=== PATIENT | male | born 1950 | race Native Hawaiian/Other Pacific Islander ===

== ENCOUNTER 2017-10-11 08:39 | Outpatient (CLI) | payer OTHER, MEDICARE ==
[2017-10-11 09:06] LABS: POTASSIUM 3.7 mmol/L (3.6-5.2)
[2017-10-11 09:34] LABS: PLATELET COUNT 221 K/uL (142-355)
== END 2017-10-11 19:02 | disposition home or self-care (01) ==
LOC: LABW 08:39
PROVIDERS: Specialist
DX: R07.2 Precordial pain (principal); Z01.810 Encounter for preprocedural cardiovascular examination; R93.1 Abnormal findings on diagnostic imaging of heart and coronary circulation
CPT/HCPCS: 36415; 80053; 85027

== ENCOUNTER 2017-11-28 09:29 | Outpatient (CLI) | payer OTHER, MEDICARE | END 2017-11-28 23:29 | disposition home or self-care (01) | LOC: RESP 09:29 | DX: R06.02 Shortness of breath (principal) ==

== ENCOUNTER 2018-01-14 04:54 | Outpatient (CLI) | payer OTHER, MEDICARE | END 2018-01-14 23:08 | disposition home or self-care (01) | LOC: LABW 04:54 | PROVIDERS: Specialist | DX: E78.2 Mixed hyperlipidemia (principal); Z79.899 Other long term (current) drug therapy; Z51.81 Encounter for therapeutic drug level monitoring | CPT/HCPCS: 36415; 80061; 80076 ==

== ENCOUNTER 2018-05-01 05:13 | Outpatient (CLI) | payer OTHER, MEDICARE | END 2018-05-01 20:05 | disposition home or self-care (01) | LOC: LABW 05:13 | PROVIDERS: Specialist | DX: E78.2 Mixed hyperlipidemia (principal); Z79.899 Other long term (current) drug therapy | CPT/HCPCS: 36415; 80061; 80076 ==

== ENCOUNTER 2018-06-02 05:20 | Outpatient (CLI) | payer OTHER, MEDICARE ==
[2018-06-02 06:21] LABS: PLATELET COUNT 189 K/uL (142-355)
[2018-06-02 07:02] LABS: POTASSIUM 4.8 mmol/L (3.6-5.2)
[2018-06-03] MEDS ORDERED: CLOP75TA2 PO (09:18)
[2018-06-03] MEDS ORDERED: ASPIR-8181 MG PO (09:18)
[2018-06-03] MEDS ORDERED: PRAVACHOL80 MG PO (09:19)
[2018-06-03] MEDS ORDERED: SERT100T PO (09:19)
[2018-06-03] MEDS ORDERED: LISI10TA11 PO (09:19)
== END 2018-06-02 19:39 | disposition home or self-care (01) ==
LOC: LABW 05:20
PROVIDERS: Internal Medicine
DX: N18.3 Chronic kidney disease, stage 3 (moderate) (principal)
CPT/HCPCS: 80053; 81000; 82043; 82306; 82330; 82570; 83735; 83970; 84100; 84155; 85027

== ENCOUNTER 2018-06-03 08:59 | Observation (INO) | payer OTHER, MEDICARE ==
[~2018-06-03] VITALS: Ht 170.2 cm; Wt 103.6 kg
[2018-06-03 09:10] VITALS: BP 156/64; TEMP 99.3
[2018-06-03] MEDS ORDERED: ASPIR-8181 MG PO (09:18)
[2018-06-03] MEDS ORDERED: CLOP75TA2 PO (09:18)
[2018-06-03] MEDS ORDERED: SERT100T PO (09:19)
[2018-06-03] MEDS ORDERED: LISI10TA11 PO (09:19)
[2018-06-03] MEDS ORDERED: PRAVACHOL80 MG PO (09:19)
[2018-06-03 09:56] LABS: PLATELET COUNT 203 K/uL (142-355)
[2018-06-03 10:01] LABS: POTASSIUM 4.2 mmol/L (3.6-5.2)
[2018-06-03 18:08] VITALS: BP 124/78; TEMP 98.5; Ht 170.2 cm; Wt 103.6 kg
[2018-06-03 20:39] VITALS: BP 113/51; TEMP 98.1
--- NOTE | 2018-06-04 00:03 | NUR ---
06/03/18 4189 ASSISTED PT TO USE IS WAS ABLE TO GO TO 3000.PT ENCORAGED TO GET OUT OF BED TO USE RESTROOM UNABLE TO USE URINAL AT THIS TIME,PT ENCOURAGED TO DRINK MORE WATER TOLD HIM WE WILL TRY AGAIN IN ALITTLE WHILE.PT DENIES ANY PAIN AT THIS TIME ONLY SORENESS.CC
[2018-06-04 00:17] VITALS: BP 104/60; TEMP 97.8
[2018-06-04 03:58] VITALS: BP 105/50; TEMP 98.1
[2018-06-04 05:52] LABS: PLATELET COUNT 174 K/uL (142-355)
[2018-06-04 06:00] LABS: POTASSIUM 4.8 mmol/L (3.6-5.2)
--- NOTE | 2018-06-04 11:15 | NUR ---
PT UP AMBULATING IN THE HALLWAY. NO DISTRESS NOTED.
[2018-06-04 23:34] VITALS: BP 127/77; TEMP 99
[2018-06-05 00:54] VITALS: BP 108/81; TEMP 98.6
[2018-06-05 05:31] VITALS: BP 126/66; TEMP 98.5
[2018-06-05 06:08] LABS: PLATELET COUNT 163 K/uL (142-355)
== END 2018-06-05 12:00 | disposition home or self-care (01) ==
LOC: ED 08:59 → MED/SURG 15:25
PROVIDERS: Emergency Medicine; Family Medicine; ADMIT Student in an Organized Health Care Education/Training Program
PROC: 0DTJ4ZZ Resection of Appendix, Percutaneous Endoscopic Approach (ICD-10-PCS; principal; 2018-06-03)
DX: K35.32 Acute appendicitis with perforation, localized peritonitis, and gangrene, without abscess (principal)
CPT/HCPCS: 36415; 80048; 80053; 81000; 85027; 94760; 96374; 99220; 99284; G0378; J0132; J0330; J0690; J1100; J1170; J1644; J2250; J2405; J2543; J2710; J2765; J3010; J3490; Q9963

== ENCOUNTER 2018-08-19 08:34 | Outpatient (CLI) | payer OTHER, MEDICARE ==
[~2018-08-19 08:34] MED LIST: ASPIR-8181 MG PO; CLOP75TA2 PO; LISI10TA11 PO; PRAVACHOL80 MG PO; SERT100T PO
[2018-08-19 09:03] LABS: PLATELET COUNT 211 K/uL (142-355)
[2018-08-19 09:14] LABS: POTASSIUM 4.6 mmol/L (3.6-5.2)
== END 2018-08-19 19:40 | disposition home or self-care (01) ==
LOC: LABW 08:34
PROVIDERS: Internal Medicine
DX: N18.3 Chronic kidney disease, stage 3 (moderate) (principal)
CPT/HCPCS: 36415; 80053; 85027

== ENCOUNTER 2018-09-29 05:05 | Outpatient (CLI) | payer OTHER ==
[2018-09-29 05:32] LABS: PLATELET COUNT 234 K/uL (142-355)
[2018-09-29 06:26] LABS: POTASSIUM 4.7 mmol/L (3.6-5.2)
== END 2018-09-29 22:18 | disposition home or self-care (01) ==
LOC: LABW 05:05
PROVIDERS: Specialist
DX: R07.2 Precordial pain (principal); Z01.810 Encounter for preprocedural cardiovascular examination; I20.0 Unstable angina
CPT/HCPCS: 36415; 80053; 85027

== ENCOUNTER 2018-11-10 04:42 | Outpatient (CLI) | payer OTHER | END 2018-11-10 19:19 | disposition home or self-care (01) | LOC: LABW 04:42 | PROVIDERS: Specialist | DX: E78.2 Mixed hyperlipidemia (principal); Z79.899 Other long term (current) drug therapy | CPT/HCPCS: 36415; 80061; 80076 ==

== ENCOUNTER 2018-11-12 07:17 | Outpatient (CLI) | payer OTHER | END 2018-11-12 23:16 | disposition home or self-care (01) | LOC: CT 07:17 | DX: R91.1 Solitary pulmonary nodule (principal); Z78.9 Other specified health status ==

== ENCOUNTER 2018-12-16 04:36 | Outpatient (CLI) | payer OTHER ==
[2018-12-16 05:59] LABS: PLATELET COUNT 219 K/uL (142-355)
[2018-12-16 06:41] LABS: POTASSIUM 4.3 mmol/L (3.6-5.2)
== END 2018-12-16 19:12 | disposition home or self-care (01) ==
LOC: LABW 04:36
PROVIDERS: Internal Medicine
DX: N18.3 Chronic kidney disease, stage 3 (moderate) (principal)
CPT/HCPCS: 36415; 80053; 81000; 82043; 82306; 82570; 82607; 83735; 83970; 84100; 84155; 85027

== ENCOUNTER 2019-01-16 16:05 | Emergency (ER) | payer OTHER ==
[~2019-01-16] VITALS: Ht 170.2 cm; Wt 103.4 kg
[2019-01-16 16:24] VITALS: TEMP 99
[2019-01-16 17:35] VITALS: BP 130/78
== END 2019-01-16 17:38 | disposition home or self-care (01) ==
LOC: ED 16:05
DX: R51 Headache (principal)
CPT/HCPCS: 99283

== ENCOUNTER 2019-02-12 04:16 | Outpatient (CLI) | payer OTHER | END 2019-02-12 20:13 | disposition home or self-care (01) | LOC: LABW 04:16 | PROVIDERS: Specialist | DX: I25.10 Atherosclerotic heart disease of native coronary artery without angina pectoris (principal); E78.2 Mixed hyperlipidemia; Z79.899 Other long term (current) drug therapy | CPT/HCPCS: 36415; 80061; 80076 ==

== ENCOUNTER 2019-09-07 04:12 | Outpatient (CLI) | payer OTHER | END 2019-09-07 19:48 | disposition home or self-care (01) | LOC: LABW 04:12 | PROVIDERS: Specialist | DX: E78.2 Mixed hyperlipidemia (principal); Z79.899 Other long term (current) drug therapy | CPT/HCPCS: 36415; 80061; 80076 ==

== ENCOUNTER 2019-09-26 05:44 | Outpatient (CLI) | payer OTHER ==
[2019-09-26 06:42] LABS: PLATELET COUNT 250 K/uL (142-355)
[2019-09-26 06:44] LABS: POTASSIUM 4.4 mmol/L (3.6-5.2)
== END 2019-09-26 19:08 | disposition home or self-care (01) ==
LOC: LABW 05:44
PROVIDERS: Internal Medicine
DX: N18.3 Chronic kidney disease, stage 3 (moderate) (principal)
CPT/HCPCS: 36415; 80053; 81000; 82306; 82570; 83735; 83970; 84100; 84155; 85027

== ENCOUNTER 2020-02-23 07:43 | Outpatient (CLI) | payer OTHER ==
[~2020-02-23] VITALS: Ht 172.7 cm; Wt 106.1 kg
== END 2020-02-23 20:42 | disposition home or self-care (01) ==
LOC: NM 07:43
DX: I25.10 Atherosclerotic heart disease of native coronary artery without angina pectoris (principal); R07.89 Other chest pain
CPT/HCPCS: A9500; J2785

== ENCOUNTER 2020-02-24 08:50 | Outpatient (CLI) | payer OTHER | END 2020-02-24 19:42 | disposition home or self-care (01) | LOC: RESP 08:50 | DX: I25.10 Atherosclerotic heart disease of native coronary artery without angina pectoris (principal); R06.09 Other forms of dyspnea; R07.89 Other chest pain ==

== ENCOUNTER 2020-03-21 06:56 | Outpatient (CLI) | payer OTHER | END 2020-03-21 21:22 | disposition home or self-care (01) | LOC: LABW 06:56 | PROVIDERS: Specialist | DX: E78.2 Mixed hyperlipidemia (principal); Z79.899 Other long term (current) drug therapy | CPT/HCPCS: 36415; 80061; 80076 ==

== ENCOUNTER 2020-05-17 06:43 | Outpatient (CLI) | payer OTHER ==
[2020-05-17 07:29] LABS: POTASSIUM 4.6 mmol/L (3.6-5.2)
[2020-05-17 09:53] LABS: PLATELET COUNT 194 K/uL (142-355)
== END 2020-05-17 23:27 | disposition home or self-care (01) ==
LOC: LABW 06:43
PROVIDERS: Nurse Practitioner
DX: N18.30 Chronic kidney disease, stage 3 unspecified (principal)
CPT/HCPCS: 36415; 80053; 81000; 82306; 82330; 82570; 83735; 83970; 84100; 84155; 85027

== ENCOUNTER 2020-06-20 10:50 | Outpatient (CLI) | payer OTHER | END 2020-06-20 19:42 | disposition home or self-care (01) | LOC: RAD 10:50 | PROVIDERS: ATTEND Nurse Practitioner | DX: Z01.818 Encounter for other preprocedural examination (principal) ==

== ENCOUNTER 2020-09-12 12:13 | Outpatient (CLI) | payer OTHER | END 2020-09-12 23:15 | disposition home or self-care (01) | LOC: RAD 12:13 | DX: R06.09 Other forms of dyspnea (principal) ==

== ENCOUNTER 2020-09-23 06:46 | Outpatient (CLI) | payer OTHER | END 2020-09-23 21:34 | disposition home or self-care (01) | LOC: LABW 06:46 | PROVIDERS: ATTEND Nurse Practitioner Adult Health | DX: E78.2 Mixed hyperlipidemia (principal); Z79.899 Other long term (current) drug therapy | CPT/HCPCS: 36415; 80061; 80076 ==

== ENCOUNTER 2020-10-18 08:20 | Outpatient (CLI) | payer OTHER ==
[2020-10-18 09:08] LABS: PLATELET COUNT 205 K/uL (142-355)
[2020-10-18 09:16] LABS: POTASSIUM 4.6 mmol/L (3.6-5.2)
== END 2020-10-18 19:06 | disposition home or self-care (01) ==
LOC: LABW 08:20
PROVIDERS: ATTEND Internal Medicine
DX: N18.31 Chronic kidney disease, stage 3a (principal)
CPT/HCPCS: 36415; 80053; 81000; 82306; 82330; 82570; 83735; 83970; 84100; 84155; 85027

== ENCOUNTER 2021-07-25 10:04 | Outpatient (CLI) | payer OTHER ==
[2021-07-25 10:55] LABS: POTASSIUM 4.2 mmol/L (3.6-5.2)
== END 2021-07-25 19:12 | disposition home or self-care (01) ==
LOC: LABW 10:04
PROVIDERS: ATTEND Internal Medicine
DX: N18.31 Chronic kidney disease, stage 3a (principal)
CPT/HCPCS: 36415; 80053; 81000; 82306; 82330; 82570; 83735; 83970; 84100; 84155

== ENCOUNTER 2021-08-11 14:26 | Outpatient (CLI) | payer OTHER | END 2021-08-11 23:12 | disposition home or self-care (01) | LOC: CT 14:26 | PROVIDERS: ATTEND Nurse Practitioner | DX: G44.89 Other headache syndrome (principal) ==

== ENCOUNTER 2021-08-12 13:22 | Emergency (ER) | payer OTHER ==
[~2021-08-12] VITALS: Ht 167.6 cm; Wt 103.0 kg
[2021-08-12 15:48] VITALS: BP 128/60; TEMP 98.3
== END 2021-08-12 15:52 | disposition home or self-care (01) ==
LOC: ED 13:22
DX: M25.552 Pain in left hip (principal)
CPT/HCPCS: 96372; 99282; J1885

== ENCOUNTER 2021-08-21 10:15 | Outpatient (CLI) | payer OTHER | END 2021-08-21 18:58 | disposition home or self-care (01) | LOC: CT 10:15 | PROVIDERS: ATTEND Orthopaedic Surgery Orthopaedic Surgery of the Spine | DX: M43.26 Fusion of spine, lumbar region (principal); M46.07 Spinal enthesopathy, lumbosacral region; M47.896 Other spondylosis, lumbar region; M54.16 Radiculopathy, lumbar region; M51.36 Other intervertebral disc degeneration, lumbar region ==

== ENCOUNTER 2021-12-13 11:36 | Inpatient (IN) | payer OTHER | END 2022-01-02 11:00 | disposition home or self-care (01) | LOC: PAVC 11:36 | PROVIDERS: ADMIT Family Medicine; ATTEND Family Medicine | DX: M48.062 Spinal stenosis, lumbar region with neurogenic claudication (principal); M43.26 Fusion of spine, lumbar region; M54.59 Other low back pain; M62.81 Muscle weakness (generalized); R26.2 Difficulty in walking, not elsewhere classified; Z74.1 Need for assistance with personal care | CPT/HCPCS: 83036; 87081; G0283-GP ==

== ENCOUNTER 2022-01-22 09:32 | Outpatient (CLI) | payer OTHER | END 2022-01-22 18:59 | disposition home or self-care (01) | LOC: LABW 09:32 | PROVIDERS: ATTEND Specialist | DX: I25.10 Atherosclerotic heart disease of native coronary artery without angina pectoris (principal); E78.2 Mixed hyperlipidemia; I10 Essential (primary) hypertension | CPT/HCPCS: 36415; 80061; 80076 ==

== ENCOUNTER 2022-04-23 05:50 | Outpatient (CLI) | payer OTHER ==
[2022-04-23 06:41] LABS: PLATELET COUNT 195 K/uL (142-355)
[2022-04-23 06:56] LABS: POTASSIUM 4.3 mmol/L (3.6-5.2)
== END 2022-04-23 18:54 | disposition home or self-care (01) ==
LOC: LABW 05:50
PROVIDERS: ATTEND Internal Medicine
DX: N18.31 Chronic kidney disease, stage 3a (principal)
CPT/HCPCS: 36415; 80053; 81002; 82306; 82330; 82570; 83735; 83970; 84100; 84156; 85027

== ENCOUNTER 2022-04-30 05:22 | Outpatient (CLI) | payer OTHER | END 2022-04-30 20:39 | disposition home or self-care (01) | LOC: LABW 05:22 | PROVIDERS: ATTEND Nurse Practitioner Adult Health | DX: I25.10 Atherosclerotic heart disease of native coronary artery without angina pectoris (principal) | CPT/HCPCS: 36415; 80061; 80076 ==

== ENCOUNTER 2022-06-29 05:09 | Outpatient (CLI) | payer OTHER | END 2022-06-29 18:55 | disposition home or self-care (01) | LOC: LABW 05:09 | PROVIDERS: ATTEND Nurse Practitioner Adult Health | DX: E78.2 Mixed hyperlipidemia (principal); I25.10 Atherosclerotic heart disease of native coronary artery without angina pectoris | CPT/HCPCS: 36415; 80061; 80076 ==

== ENCOUNTER 2022-08-08 04:44 | Outpatient (CLI) | payer OTHER | END 2022-08-08 19:45 | disposition home or self-care (01) | LOC: LABW 04:44 | PROVIDERS: ATTEND Specialist | DX: E78.2 Mixed hyperlipidemia (principal); I25.10 Atherosclerotic heart disease of native coronary artery without angina pectoris | CPT/HCPCS: 36415; 80061 ==

== ENCOUNTER 2022-10-30 10:18 | Outpatient (CLI) | payer OTHER ==
[2022-10-30 10:58] LABS: PLATELET COUNT 208 K/uL (142-355)
[2022-10-30 11:07] LABS: POTASSIUM 4.1 mmol/L (3.6-5.2)
== END 2022-10-30 20:56 | disposition home or self-care (01) ==
LOC: LABW 10:18
PROVIDERS: ATTEND Internal Medicine
DX: N18.31 Chronic kidney disease, stage 3a (principal)
CPT/HCPCS: 36415; 80053; 81002; 82306; 82330; 82570; 83735; 83970; 84100; 84156; 85027

== ENCOUNTER 2022-12-06 06:00 | Outpatient (CLI) | payer OTHER | END 2022-12-06 17:00 | LOC: LABW 06:00 | PROVIDERS: ATTEND Specialist | DX: E78.2 Mixed hyperlipidemia (principal); I25.10 Atherosclerotic heart disease of native coronary artery without angina pectoris | CPT/HCPCS: 36415; 80061; 80076 ==

== ENCOUNTER 2023-03-18 05:41 | Outpatient (CLI) | payer OTHER ==
[2023-03-18 06:06] LABS: PLATELET COUNT 196 K/uL (142-355)
[2023-03-18 06:36] LABS: POTASSIUM 3.9 mmol/L (3.6-5.2)
== END 2023-03-18 20:24 | disposition home or self-care (01) ==
LOC: LAB 05:41
PROVIDERS: ATTEND Internal Medicine
DX: N18.31 Chronic kidney disease, stage 3a (principal)
CPT/HCPCS: 36415; 80053; 81002; 82306; 82330; 83735; 83970; 84100; 85027

== ENCOUNTER 2023-04-25 05:22 | Outpatient (CLI) | payer OTHER | END 2023-04-25 19:15 | disposition home or self-care (01) | LOC: LABW 05:22 | PROVIDERS: ATTEND Nurse Practitioner Adult Health | DX: E78.2 Mixed hyperlipidemia (principal); I25.10 Atherosclerotic heart disease of native coronary artery without angina pectoris | CPT/HCPCS: 36415; 80061 ==